=== PATIENT | male | born 1940 | race Caucasian/White ===

== ENCOUNTER → 2016-08-30 | Outpatient (CLI) | payer MEDICARE, OTHER ==
[~2016-08-30] MED LIST: ASPI-586 PO; CALC-787 PO; CALC-870 PO; LISI10TA PO; MULT-301 PO; OXYC-272 PO; PHEN200T27 PO; PRAV40TA PO
--- OUTSIDE RECORDS SUMMARY | 2016-08-30 12:24 | XMS REPORT | Continuity of Care Document ---
Author Author [facility] Organization [facility] Address Unknown Phone Unavailable Allergies Active Description Code Type Severity Reaction Onset Reported/Identified Relationship to Patient Clinical Status Yes No Known Drug Allergies [id number] Drug Allergy Unknown N/ A 08/17/2011 Yes amlodipine [id number] Drug Allergy Unknown N/A 03/11/2015 Medications Problems Date Dx Coded Attending Type Code Diagnosis Diagnosed By 08/23/2011 Ot 185 MALIGN NEOPL PROSTATE 08/23/2011 Ot 594.1 BLADDER CALCULUS NEC 01/22/2012 Ot 185 MALIGN NEOPL PROSTATE 02/25/2012 Ot 185 MALIGN NEOPL PROSTATE 02/25/2012 Ot V58.0 ENCOUNTER FOR RADIOTHERAPY 05/26/2012 Ot 185 MALIGN NEOPL PROSTATE 05/26/2012 Ot V58.0 ENCOUNTER FOR RADIOTHERAPY 08/31/2012 Ot 185 MALIGN NEOPL PROSTATE 04/14/2014 LYNDSAY FARMER MD Ot 185 MALIGN NEOPL PROSTATE 04/14/2014 LYNDSAY FARMER MD Ot 288.50 LEUKOCYTOPENIA, UNSPECIFIED 04/14/2014 LYNDSAY FARMER MD Ot 288.51 LYMPHOCYTOPENIA 04/14/2014 LYNDSAY FARMER MD Ot 401.9 HYPERTENSION NOS 04/14/2014 LYNDSAY FARMER MD Ot 716.90 ARTHROPATHY NOS-UNSPEC 04/14/2014 LYNDSAY FARMER MD Ot 782.4 JAUNDICE NOS 04/14/2014 LYNDSAY FARMER MD Ot V58.69 OTH MED,LT,CURRENT USE 05/31/2014 LYNDSAY FARMER MD Ot 185 06/01/2014 LYNDSAY FARMER MD Ot 185 06/01/2014 LYNDSAY FARMER MD Ot 185 06/01/2014 LYNDSAY FARMER MD Ot 185 06/01/2014 LYNDSAY FARMER MD Ot 185 06/02/2014 LYNDSAY FARMER MD Ot 185 06/02/2014 LYNDSAY FARMER MD Ot 185 06/03/2014 LYNDSAY FARMER MD Ot 185 07/15/2014 LYNDSAY FARMER MD Ot 185 08/30/2014 LYNDSAY FARMER MD Ot 185 MALIGN NEOPL PROSTATE 11/29/2014 MARLENY BURNETTE, LYNDSAY Evans Ot 185 11/29/2014 MARLENY BURNETTE, LYNDSAY Evans Ot 185 11/29/2014 MARLENY BURNETTE, LYNDSAY Evans Ot 185 11/30/2014 MARLENY BURNETTE, LYNDSAY Evans Ot 185 11/30/2014 MARLENY BURNETTE, LYNDSAY Evans Ot 185 12/22/2014 MARLENY BURNETTE, LYNDSAY Evans Ot 185 03/11/2015 SUSAN PICKENS MD Ot 558.1 RADIATION GASTROENTERIT 03/11/2015 SUSAN PICKENS MD Ot 562.10 DIVERTICULOSIS COLON (W/O MENT OF HEMORR 03/11/2015 SUSAN PICKENS MD Ot 564.00 UNSPEC CONSTIPATION 03/11/2015 SUSAN PICKENS MD Ot 569.3 RECTAL ANAL HEMORRHAGE 06/23/2015 JEAN HERNANDEZ MD Ot C61 12/05/2015 JEAN HERNANDEZ MD E Ot C61 MALIGNANT NEOPLASM OF PROSTATE 12/21/2015 JEAN HERNANDEZ MD Ot C61 MALIGNANT NEOPLASM OF PROSTATE 05/29/2016 JEAN HERNANDEZ MD E Ot C61 MALIGNANT NEOPLASM OF PROSTATE 06/26/2016 JEAN HERNANDEZ MD E Ot C61 MALIGNANT NEOPLASM OF PROSTATE 08/30/2016 Ot 185 MALIGN NEOPL PROSTATE 08/30/2016 Ot 185 MALIGN NEOPL PROSTATE 08/30/2016 Ot 594.1 BLADDER CALCULUS NEC 08/30/2016 Ot V72.81 [id number] CARDIOVASCULAR 08/30/2016 Ot V74.8 SCREEN-BACTERIAL DIS NEC 08/30/2016 Ot 447.8 ARTERIAL DISEASE NEC 08/30/2016 DAVID BURNETTE, JEAN E Ot 185 MALIGN NEOPL PROSTATE 08/30/2016 JEAN HERNANDEZ MD E Ot 185 MALIGN NEOPL PROSTATE 08/30/2016 JEAN HERNANDEZ MD E Ot 185 MALIGN NEOPL PROSTATE 08/30/2016 MARLENY BURNETTE, LYNDSAY Krueger Ot 185 MALIGN NEOPL PROSTATE 08/30/2016 SUSAN PICKENS MD Ot 569.3 RECTAL ANAL HEMORRHAGE 08/30/2016 SUSAN PICKENS MD Ot V72.84 EXAM PRE-OPERATIVE NOS 08/30/2016 JEAN HERNANDEZ MD E Ot C61 MALIGNANT NEOPLASM OF PROSTATE 08/30/2016 JEAN HERNANDEZ MD E Ot C61 MALIGNANT NEOPLASM OF PROSTATE 08/30/2016 JEAN HERNANDEZ MD Ot C61 MALIGNANT NEOPLASM OF PROSTATE Procedures Results Test Result Range Prostate specific ag [mass/volume] in serum or plasma - 05/28/16 08:49 Prostate specific ag [mass/volume] in serum or plasma 0.68 % 0.00-4.00 Encounters ACCT No. Visit Date/Time Discharge Status Pt. Type Provider Facility Loc./Unit Complaint [id number] 03/11/2015 07:30:00 2014 10:20:00 DIS Outpatient SUSAN PICKENS MD [facility] SDC RECTAL BLEEDING [id number] 03/09/2015 05:42:00 2014 23:59:59 CLS Outpatient SUSAN PICKENS MD [facility] PREOP RECTAL BLEEDING [id number] 11/30/2014 08:56:00 2014 23:59:59 CLS Outpatient LYNDSAY FARMER MD [facility] ONC [id number] 06/01/2014 08:43:00 2013 23:59:59 CLS Outpatient LYNDSAY FARMER MD [facility] ONC [id number] 02/04/2014 09:23:00 2013 00:01:00 DIS Outpatient LYNDSAY FARMER MD [facility] ONC [id number] 11/30/2013 09:23:00 2013 23:59:59 CLS Outpatient JEAN HERNANDEZ MD [facility] ONC [id number] 06/01/2013 09:44:00 2012 23:59:59 CLS Outpatient JEAN HERNANDEZ MD [facility] ONC [id number] 12/08/2012 08:50:00 2012 23:59:59 CLS Outpatient JEAN HERNANDEZ MD [facility] ONC [id number] 08/30/2016 12:21:00 ACT Outpatient DEBRA COVARRUBIAS DO [facility] RAD FORGETTING,DOESN'T KNOW 10-2 [id number] 05/28/2016 08:22:00 ACT Outpatient JEAN HERNANDEZ MD [facility] ONC [id number] 11/30/2015 08:29:00 ACT Outpatient JEAN HERNANDEZ MD [facility] ONC [id number] 05/31/2015 08:51:00 ACT Outpatient DAVID BURNETTE, JEAN [facility] ONC [id number] 06/02/2012 08:02:00 Document Registration [id number] 04/17/2012 08:32:00 Document Registration [id number] 02/25/2012 08:36:00 Document Registration [id number] 01/28/2012 08:38:00 Document Registration [id number] 01/15/2012 14:08:00 Document Registration [id number] 08/23/2011 06:10:00 Document Registration [id number] 08/17/2011 13:16:00 Document Registration [id number] 08/01/2011 11:26:00 Document Registration [id number] 07/26/2011 16:56:00 Document Registration
--- NOTE | 2016-08-30 13:29 | Diagnostic Imaging Report ---
PROCEDURE: CT head without contrast. TECHNIQUE: Multiple contiguous axial images were obtained through the brain without the use of intravenous contrast. INDICATION: Memory loss. FINDINGS: Hypodensities are seen within the left parietal region predominantly within the white matter. This is within the posterior distribution of the left MCA territory and could be infarct related. There is, however, a patchy appearance and confirmation with MRI to rule out underlying focal lesions is recommended. There is no hydrocephalus. No intracranial hemorrhage. There is only minimal localized mass effect at the left parietal region. The calvarium, the paranasal sinuses and visualized portions of the orbits appear grossly unremarkable. IMPRESSION: Hypodense lesions within the posterior left parietal lobe may relate to subacute infarction. It has somewhat atypical patchy appearance, however. Further evaluation with MRI is recommended to rule out underlying focal lesions. The findings were discussed with Dr. Murdock by Dr. Crisostomo at time of dictation. Dictated by: Dictated on workstation # [id number]
== END ==
LOC: RAD 12:21
PROVIDERS: ATTEND Family Medicine
DX: R41.3 Other amnesia (principal)
CPT/HCPCS: 70450

== ENCOUNTER → 2016-09-03 | Outpatient (CLI) | payer MEDICARE, OTHER ==
[~2016-09-03] MED LIST changes: +GADOBUTROL 10 MMOL/10 ML (GADAVIST) VIAL IV ONE
--- OUTSIDE RECORDS SUMMARY | 2016-09-03 09:03 | XMS REPORT | Continuity of Care Document ---
Author Author [facility] Organization [facility] Address Unknown Phone Unavailable Allergies Active Description Code Type Severity Reaction Onset Reported/Identified Relationship to Patient Clinical Status Yes No Known Drug Allergies [id number] Drug Allergy Unknown N/ A 08/17/2011 Yes amlodipine [id number] Drug Allergy Unknown N/A 03/11/2015 Medications Problems [...] MD Ot 569.3 RECTAL ANAL HEMORRHAGE 06/23/2015 DAVID BURNETTE, JEAN [place] Ot C61 12/05/2015 JEAN HERNANDEZ MD Ot C61 MALIGNANT NEOPLASM OF PROSTATE 12/21/2015 JEAN HERNANDEZ MD Ot C61 MALIGNANT NEOPLASM OF PROSTATE 05/29/2016 JEAN HERNANDEZ MD E Ot C61 MALIGNANT NEOPLASM OF PROSTATE 06/26/2016 JEAN HERNANDEZ MD Ot C61 MALIGNANT NEOPLASM OF PROSTATE 08/30/2016 Ot 185 MALIGN NEOPL PROSTATE 08/30/2016 Ot 185 MALIGN NEOPL PROSTATE 08/30/2016 Ot 594.1 BLADDER CALCULUS NEC 08/30/2016 Ot V72.81 [id number] CARDIOVASCULAR 08/30/2016 Ot V74.8 SCREEN-BACTERIAL DIS NEC [...] EXAM PRE-OPERATIVE NOS 08/30/2016 JEAN HERNANDEZ MD Ot C61 MALIGNANT NEOPLASM OF PROSTATE 08/30/2016 JEAN HERNANDEZ MD Ot C61 MALIGNANT NEOPLASM OF PROSTATE 08/30/2016 JEAN HERNANDEZ MD Ot C61 MALIGNANT NEOPLASM OF PROSTATE 08/30/2016 DEBRA COVARRUBIAS DO Ot R41.3 OTHER AMNESIA Procedures Results Test Result Range Prostate specific ag [mass/volume] in serum or plasma - 05/28/16 08:49 Prostate specific ag [mass/volume] in serum or plasma 0.68 % 0.00-4.00 Encounters ACCT No. Visit Date/Time Discharge Status Pt. Type Provider Facility Loc./Unit Complaint [id number] 03/11/2015 07:30:00 2014 10:20:00 DIS Outpatient SUSAN PICKENS MD [facility] SDC RECTAL BLEEDING [id number] 03/09/2015 05:42:00 2014 23:59:59 CLS Outpatient SUSAN PICKENS MD [facility] PREOP RECTAL BLEEDING [id number] 11/30/2014 08:56:00 2014 23:59:59 CLS Outpatient LYNDSAY FARMER MD [facility] ONC [id number] 06/01/2014 08:43:00 2013 23:59:59 CLS Outpatient LYNDSAY FARMER MD [facility] ONC [id number] 02/04/2014 09:23:00 2013 00:01:00 DIS Outpatient LYNDSAY FARMER MD [facility] ONC [id number] 11/30/2013 09:23:00 2013 23:59:59 CLS Outpatient JEAN HERNANDEZ MD [facility] ONC [id number] 06/01/2013 09:44:00 2012 23:59:59 CLS Outpatient JEAN HERNANDEZ MD [facility] ONC [id number] 12/08/2012 08:50:00 2012 23:59:59 CLS Outpatient JEAN HERNANDEZ MD [facility] ONC [id number] 08/30/2016 12:21:00 ACT Outpatient DEBRA COVARRUBIAS DO [facility] RAD FORGETTING,DOESN'T KNOW 10-2 [id number] 05/28/2016 08:22:00 ACT Outpatient JEAN HERNANDEZ MD [facility] ONC [id number] 11/30/2015 08:29:00 ACT Outpatient JEAN HERNANDEZ MD [facility] ONC [id number] 05/31/2015 08:51:00 ACT Outpatient JEAN HERNANDEZ MD [facility] ONC [id number] 06/02/2012 08:02:00 Document Registration [id number] 04/17/2012 08:32:00 Document Registration [id number] 02/25/2012 08:36:00 Document Registration [id number] 01/28/2012 08:38:00 Document Registration [id number] 01/15/2012 14:08:00 Document Registration [id number] 08/23/2011 06:10:00 Document Registration [id number] 08/17/2011 13:16:00 Document Registration [id number] 08/01/2011 11:26:00 Document Registration [id number] 07/26/2011 16:56:00 Document Registration
--- NOTE | 2016-09-03 11:58 | Diagnostic Imaging Report ---
PROCEDURE: MR imaging of the brain with and without contrast. TECHNIQUE: Multiplanar/multisequence MR imaging of the brain was performed with and without contrast. INDICATION: Confusion. History of prostate cancer. Memory loss. CONTRAST: 10 m of Gadovist was administered intravenously. FINDINGS: There is a large mass in the posterior aspect of the left temporal lobe with extension into the left occipital and left parietal regions as well as associated satellite enhancing subcentimeter nodules around it. There is localized significant mass effect and surrounding vasogenic edema. The maximum dimensions of the mass are 5.3 x 2.6 x 3.7 cm. There is a 3 mm midline shift to the right side. There is slight effacement of the left side aspect of the perimesencephalic cistern. The right hemisphere demonstrates no enhancing mass or abnormal signal. The cerebellum and brainstem appear unremarkable. The pituitary gland is normal in size. No hypothalamic or pineal region mass. No hydrocephalus. No extra-axial fluid collection or enhancing mass. The central vascular flow-voids are preserved. The internal auditory canals and the inner ear structures appear grossly unremarkable. IMPRESSION: There is a 5.3 cm posterior left temporal mass with significant surrounding vasogenic edema extending to the left occipital and parietal lobes with associated subcentimeter satellite nodules favored to be related to prostate cancer metastasis. The main differential but less likely consideration is glioblastoma multiforme. The findings were discussed with Dr. Murdock by Dr. Crisostomo at the time of dictation. Dictated by: Dictated on workstation # [id number]
== END ==
LOC: RAD 09:00
PROVIDERS: ATTEND Family Medicine
DX: G93.9 Disorder of brain, unspecified (principal)
CPT/HCPCS: 70553

== ENCOUNTER → 2016-09-05 | Outpatient (CLI) | payer MEDICARE, OTHER ==
[~2016-09-05] MED LIST changes: +CATHETER FLUSH 10 ML SYR IV PRN; -GADOBUTROL 10 MMOL/10 ML (GADAVIST) VIAL IV ONE; +IOHEXOL 350 MG/ML 100 ML (OMNIPAQUE 350) VIAL IV ONE; +NS 100 ML (IVPB) BAG IV ONE
--- NOTE | 2016-09-05 13:48 | Diagnostic Imaging Report ---
PROCEDURE: CT chest, abdomen, and pelvis with contrast. TECHNIQUE: Multiple contiguous axial images were obtained through the chest, abdomen, and pelvis after the administration of intravenous contrast. INDICATION: Brain mass. FINDINGS: Chest: There is no lung mass or suspicious pulmonary nodularity. There is no axillary, hilar or mediastinal lymphadenopathy. The aorta is nonaneurysmal. There is no pleural or pericardial effusion. There is a small hiatal hernia. No suspicious osseous abnormality. Abdomen and pelvis: There is cholelithiasis without features of acute cholecystitis. There are bilateral benign renal parapelvic and few benign renal cortical cysts. Unobstructed kidneys appeared otherwise normal. There is no adrenal mass. Pancreas appeared normal. Spleen negative. There is no mesenteric or retroperitoneal lymphadenopathy. There is no ascites, abscess, hematoma or other fluid collection. Prostate is enlarged and heterogeneous indenting the urinary bladder base. Prostamegaly could be benign or malignant. No pelvic sidewall or iliac adenopathy. The osseous structures reveal degenerative changes but no acute or suspicious lesion. IMPRESSION: 1. Chest: Negative chest. No findings of primary or secondary neoplasm. No acute finding. 2. Abdomen: Renal parapelvic and cortical cysts with small hiatal hernia. No evidence for abdominal involvement by malignancy. 3. Pelvis: Heterogeneous nodular prostamegaly indents the thickwalled urinary bladder base. No lymphadenopathy. Dictated by: Dictated on workstation # [id number]
== END ==
LOC: RAD 12:12
PROVIDERS: ATTEND Family Medicine
DX: D49.6 Neoplasm of unspecified behavior of brain (principal)
CPT/HCPCS: 71260; 74177